=== PATIENT | female | born 1990 | race American Indian/Alaskan Native ===

== ENCOUNTER 2021-04-27 13:12 | Emergency (ER) | payer MEDICAID ==
--- NOTE | 2021-04-27 14:23 | XRay Report ---
RIGHT FOOT 3 VIEW(S) INDICATION / CLINICAL INFORMATION: pain in area of R great toe after fall COMPARISON: None available. FINDINGS: BONES / JOINT(S): Oblique, nondisplaced fracture of the great toe proximal phalanx. No evidence of in tra-articular extension of the fracture line. There is mild hallux valgus deformity of the first MTP joint. No significant arthritis. SOFT TISSUES: No significant abnormality. ADDITIONAL FINDINGS: None. Signer Name: Preet Grider MD Signed: 04/27/2021 2:19 PM Workstation Name: [email or web address]
--- NOTE | 2021-04-27 14:26 | Emergency Department Report ---
ED General Adult HPI - General Chief complaint: Extremity Injury, Lower Stated complaint: RT TOE SPRAIN Time Seen by Provider: 04/27/21 13:35 Source: patient Mode of arrival: Ambulatory Limitations: No Limitations - History of Present Illness Initial comments: 30-year-old -[place] female patient presents with complaints of right great toe pain after a fall injury 3 days ago. She rates her current pain is 8/10 in severity and states Goody's patterns are not helping. Pain worsens with ambulation and to touch. Past medical history includes diabetes. She denies any numbness, but admits to some swelling Severity scale (0 -10): 10 - Related Data Previous Rx's Medication Instructions Recorded Last Taken Type Acetaminophen/Codeine [Tylenol 1 tab PO Q8H PRN #10 tab 04/27/21 Unknown Rx /Codeine # 3 tab] Allergies Allergy/AdvReac Type Severity Reaction Status Date / Time No Known Allergies Allergy Verified 04/27/21 15:14 ED Review of Systems ROS: Stated complaint: RT TOE SPRAIN Other details as noted in HPI Musculoskeletal: joint swelling, arthralgia Skin: denies: change in color Neurological: denies: numbness, paresthesias ED Past Medical Hx - Medications Home Medications: Home Medications Medication Instructions Recorded Confirmed Last Taken Type Acetaminophen/Codeine [Tylenol 1 tab PO Q8H PRN #10 tab 04/27/21 Unknown Rx /Codeine # 3 tab] ED Physical Exam - General Limitations: No Limitations General appearance: alert, in no apparent distress, obese - Head Head exam: Present: atraumatic, normocephalic - Eye Eye exam: Present: normal appearance - Respiratory Respiratory exam: Absent: respiratory distress - Cardiovascular Cardiovascular Exam: Present: regular rate - Extremities Exam Extremities exam: Present: other (TTP over the right first MCP and toe with mild swelling noted; normal perfusion and sensation noted) - Neurological Exam Neurological exam: Present: alert, oriented X3 - Psychiatric Psychiatric exam: Present: normal affect, normal mood - Skin Skin exam: Present: warm, dry, intact, normal color. Absent: rash ED Course Vital Signs 04/27/21 04/27/21 13:22 16:27 Temperature 98.7 F 97.6 F Pulse Rate 75 Respiratory 18 20 Rate Blood Pressure 185/105 174/107 [Right] O2 Sat by Pulse 98 100 Oximetry ED Medical Decision Making - Radiology Data Radiology results: report reviewed RIGHT FOOT 3 VIEW(S) INDICATION / CLINICAL INFORMATION: pain in area of R great toe after fall COMPARISON: None available. FINDINGS: BONES / JOINT(S): Oblique, nondisplaced fracture of the great toe proximal phalanx. No evidence of intra-articular extension of the fracture line. There is mild hallux valgus deformity of the first MTP joint. No significant arthritis. SOFT TISSUES: No significant abnormality. ADDITIONAL FINDINGS: None. - Medical Decision Making 30-year-old -[place] female patient presents with complaints of right great toe pain after a fall injury 3 days ago. She rates her current pain is 8/10 in severity and states Goody's patterns are not helping. Pain worsens with ambulation and to touch. Past medical history includes diabetes. She denies any numbness, but admits to some swelling X-ray shows proximal oblique fracture through the first right phalanx. Patient placed in elan tape and provided with postop shoe. She is to follow-up with orthopedics in 3 to 5 days. Discussed in detail signs and symptoms that should prompt immediate return to the ED, patient verbalizes understanding. Blood pressure noted to be elevated. Patient states history of hypertension and noncompliance with her home antihypertensive. No neuro symptoms per patient. Discussed importance of blood pressure medication compliance and follow-up with her primary care in 2 days peer Critical care attestation.: If time is entered above; I have spent that time in minutes in the direct care of this critically ill patient, excluding procedure time. ED Disposition Clinical Impression: Toe fracture, right Qualifiers: Toe: great toe Fracture type: closed Phalanx: proximal Fracture alignment: nondisplaced Disposition: 01 HOME / SELF CARE / HOMELESS Is pt being admited?: No Condition: Stable Instructions: Toe Fracture, [id number] Prescriptions: Acetaminophen/Codeine [Tylenol /Codeine # 3 tab] 1 tab PO Q8H PRN #10 tab PRN Reason: Pain , Severe (7-10) Referrals: [facility] [Provider Group] - 3-5 Days Forms: Work/School Release Form(ED)
[2021-04-27] MEDS ORDERED: HYDROcodone/ACETAMINOPHEN 5-325 MG TAB PO ONE (15:24)
[2021-04-27 16:29] VITALS: BP 174/107
== END 2021-04-27 16:27 | disposition home or self-care (01) ==
LOC: ED 13:12
DX: S92.411A Displaced fracture of proximal phalanx of right great toe, initial encounter for closed fracture (principal); W19.XXXA Unspecified fall, initial encounter; Y93.89 Activity, other specified; Y92.89 Other specified places as the place of occurrence of the external cause; Y99.8 Other external cause status
CPT/HCPCS: 99283